=== PATIENT | male | born 2000 | race Caucasian/White ===

== ENCOUNTER 2021-03-02 10:34 | Emergency (ER) | payer BC ==
[~2021-03-02] VITALS: Ht 180.3 cm; Wt 103.6 kg
[2021-03-02 10:37] VITALS: TEMP 98.1
[2021-03-02 12:13] LABS: BASO # 0.1 (0.0-0.2); BASO % 0.8 % (0.0-2.0); EOS # 0.2 (0.0-0.7); EOS % 2.4 % (0-4.0); GRAN # 4.3 (1.4-6.5); GRAN % 65.2 % (42.2-75.2); HEMATOCRIT 49.3 % (36.0-47.0); HEMOGLOBIN 17.6 g/dl (12.5-16.1); LYMPH # 1.4 (1.2-3.4); MEAN CELL VOLUME 85 fl (80.0-95.0); MEAN CORPUSCULAR HEMOGLOBIN 31 pg (26.0-32.0); MEAN CORPUSCULAR HGB CONC 36 g/dl (33.0-37.0); MEAN PLATELET VOLUME 10.8 fl (7.4-10.4); MONO # 0.6 (0.1-0.6); MONO % 9.3 % (1.7-9.3); PLATELET COUNT 242 K/mm3 (130-400); RED BLOOD COUNT 5.77 M/mm3 (4.20-5.60); REDCELL DISTRIBUTION WIDTH-CV 12.6 % (11.5-14.5)
[2021-03-02 12:29] LABS: ALBUMIN 4.6 gm/dL (3.5-5.0); BILIRUBIN,TOTAL 0.7 mg/dL (0.0-1.0); CALCIUM 9.3 mg/dL (8.4-10.2); CREATININE, serum 0.78 (0.66-1.25); TOTAL PROTEIN 7.8 gm/dL (6.4-8.2)
[2021-03-02 14:07] VITALS: BP 149/79; PULSE 82
[2021-03-18] MEDS ORDERED: MOTRIN 400400 MG/TAB PO (09:33)
[2021-03-18] MEDS ORDERED: AMOXICILLIN 8751 TAB PO (09:33)
[2021-03-18] MEDS ORDERED: ROXICODONE 55 MG/TAB PO (09:33)
== END 2021-03-02 14:07 | disposition home or self-care (01) ==
LOC: COL.ER 10:34
PROVIDERS: Family Medicine
DX: S01.81XA Laceration without foreign body of other part of head, initial encounter (principal); R22.2 Localized swelling, mass and lump, trunk; V19.9XXA Pedal cyclist (driver) (passenger) injured in unspecified traffic accident, initial encounter
CPT/HCPCS: J7120; Q9967

== ENCOUNTER → 2021-03-15 | Outpatient (CLI) | payer BC ==
[2021-03-15] VITALS (12 sets, daily range): BP systolic 125–157; BP diastolic 66–88; PULSE 73–98
[~2021-03-15] VITALS: Ht 180.3 cm; Wt 105.2 kg
[~2021-03-15] MED LIST: AMOXICILLIN 8751 TAB PO; MOTRIN 400400 MG/TAB PO; NORCO 325 MG-51 TAB PO; ROXICODONE 55 MG/TAB PO
--- NOTE | 2021-03-15 08:00 | NUR ---
pt to ct per ambulation. Denies complaints at this time. Pt onto ct table in supine position monitors applied.
--- NOTE | 2021-03-15 08:30 | NUR ---
Specimens obtained and placed in formalin by Dr Daniel, specimen labeled.
== END ==
LOC: COL.RAD 06:54
DX: J98.59 Other diseases of mediastinum, not elsewhere classified (principal)
CPT/HCPCS: J3010

== ENCOUNTER 2021-03-17 18:50 | Emergency (ER) | payer BC ==
[~2021-03-17] VITALS: Ht 180.3 cm; Wt 103.6 kg
[2021-03-17 18:57] VITALS: BP 123/84; TEMP 100
[2021-03-17 20:00] LABS: STREP SCREEN NEGATIVE
[2021-03-17 21:37] LABS: HEMATOCRIT 48.6 % (36.0-47.0); HEMOGLOBIN 17.3 g/dl (12.5-16.1); MEAN CELL VOLUME 84 fl (80.0-95.0); MEAN CORPUSCULAR HEMOGLOBIN 30 pg (26.0-32.0); MEAN CORPUSCULAR HGB CONC 36 g/dl (33.0-37.0); PLATELET COUNT 242 K/mm3 (130-400); RED BLOOD COUNT 5.76 M/mm3 (4.20-5.60); REDCELL DISTRIBUTION WIDTH-CV 12.4 % (11.5-14.5)
[2021-03-17] MEDS ORDERED: NORCO 325 MG-51 TAB PO (22:18)
[2021-03-17] MEDS ORDERED: AMOXICILLIN 8751 TAB PO (22:18)
[2021-03-17 22:29] VITALS: PULSE 96
[2021-03-17 22:34] LABS: BAND 1 % (0-10); EOSINOPHIL 1 % (0-4); LYMPHOCYTE 8 % (20.0-51.0); NEUTROPHILS 82 % (42.0-75.2)
[2021-03-18] MEDS ORDERED: MOTRIN 400400 MG/TAB PO (09:33)
[2021-03-18] MEDS ORDERED: AMOXICILLIN 8751 TAB PO (09:33)
[2021-03-18] MEDS ORDERED: ROXICODONE 55 MG/TAB PO (09:33)
== END 2021-03-17 22:29 | disposition home or self-care (01) ==
LOC: COL.ER 18:50
PROVIDERS: Emergency Medicine
DX: J02.9 Acute pharyngitis, unspecified (principal)
CPT/HCPCS: J0696; J1100; J1885; J2270; J2405; J7030

== ENCOUNTER → 2021-12-14 | Outpatient (CLI) | payer BC | LOC: COL.RAD 12:33 | DX: J98.59 Other diseases of mediastinum, not elsewhere classified (principal); R91.1 Solitary pulmonary nodule ==

== ENCOUNTER → 2023-11-27 | Outpatient (CLI) | payer SELFPAY | LOC: COL.LAB 10-11 08:40 | DX: J30.9 Allergic rhinitis, unspecified (principal) ==